=== PATIENT | female | born 1965 | race American Indian/Alaskan Native ===

== ENCOUNTER 2021-09-24 02:52 | Emergency (ER) | payer BC ==
--- NOTE | 2021-09-24 04:42 | XRay Report ---
XR chest routine 2V INDICATION / CLINICAL INFORMATION: COUGH. COMPARISON: None available. FINDINGS: SUPPORT DEVICES: None. HEART /PULMONARY VASCULATURE: No significant abnormality. LUNGS / PLEURA: No significant pulmonary or pleural abnormality. No pneumothorax. ADDITIONAL FINDINGS: Scoliotic curvature of the spine. IMPRESSION: 1. No acute findings. Signer Name: Leland Alvarado MD Signed: 09/24/2021 4:38 AM Workstation Name: [id number]
[2021-09-24] MEDS ORDERED: ALBUTEROL 2.5 MG/3 ML NEBU IH ONE (04:58)
[2021-09-24] MEDS ORDERED: IPRATROPIUM 0.02% NEBU 2.5 ML IH ONE (04:58)
[2021-09-24] MEDS ORDERED: methylPREDNISolone Sod Succinate 125 MG/2 ML INJ IM ONE (04:58)
--- NOTE | 2021-09-24 06:18 | Emergency Department Report ---
ED Shortness of Breath HPI - General Chief Complaint: Adult Asthma Stated Complaint: MIRI Source: patient Mode of arrival: Ambulatory Limitations: No Limitations - History of Present Illness Initial Comments: Patient is a 56-year-old -Iranian female with a history of chronic asthma and hypertension who presents to the ED with complaint of acute onset persistent shortness of breath, wheezing, chest tightness, persistent dry cough, nasal and sinus congestion for the last 1 week. Patient states that the symptoms have worsened especially in the last 4 days. Patient states that the symptoms are especially worse at night when she lays down and states that she has not slept in 2 days because of persistent cough and chest tightness with wheezing. Patient also states that she has been using her albuterol inhaler and nebulizers at home persistently with minimal relief. Patient denies fever, chills, nausea and vomiting, chest pain, abdominal pain, palpitation, change in vision, headache, sore throat, back pain, neck pain, dizziness or syncope. MD Complaint: shortness of breath, cough, "asthma attack" -: Gradual, week(s) (1) Severity: moderate Pain Scale: 5 Quality: other (Chest tightness) Consistency: constant Improves With: bronchodilators Worsens With: lying flat, coughing Known History Of: asthma Context: recent URI, allergen exposure Associated Symptoms: denies other symptoms, chest pain (Chest tightness), cough Treatments Prior to Arrival: bronchodilator - Related Data Home Oxygen Therapy: No Home Medications Medication Instructions Recorded Confirmed Last Taken amLODIPine 1 PO 06/29/13 06/29/13 Unknown hydroCHLOROthiazide 25 mg PO 06/29/13 06/29/13 Unknown [Hydrochlorothiazide] Previous Rx's Medication Instructions Recorded Last Taken Type Ferrous Sulfate [Iron Supplement 325 mg PO BID #60 tablet 06/29/13 Unknown Rx 325 Mg tab] medroxyPROGESTERone ACETATE 5 mg PO QDAY #7 tablet 06/29/13 Unknown Rx [Provera] Azithromycin [Zithromax Z-CLINTON] 250 mg PO DAILY #6 tab 09/24/21 Unknown Rx Benzonatate [Tessalon Perles] 100 mg PO Q8HR #30 cap 09/24/21 Unknown Rx Cetirizine HCl [Zyrtec 10mg tab] 10 mg PO DAILY #30 tab 09/24/21 Unknown Rx Montelukast [Singulair] 10 mg PO QPM #30 tablet 09/24/21 Unknown Rx Prednisone [predniSONE 10 mg 10 mg PO .TAPER #1 09/24/21 Unknown Rx (6-Day Pack, 21 Tabs)] Allergies Allergy/AdvReac Type Severity Reaction Status Date / Time Penicillins Allergy Unknown Verified 06/29/13 17:37 ED Review of Systems ROS: Stated complaint: MIRI Other details as noted in HPI Constitutional: denies: chills, fever Eyes: denies: eye pain, eye discharge, vision change ENT: congestion, other (Nasal and sinus congestion with pressure). denies: ear pain, throat pain Respiratory: cough, shortness of breath, wheezing Cardiovascular: denies: chest pain, palpitations Endocrine: no symptoms reported Gastrointestinal: denies: abdominal pain, nausea, vomiting, diarrhea Genitourinary: denies: urgency, dysuria, discharge Musculoskeletal: denies: back pain, joint swelling, arthralgia Skin: denies: rash, lesions Neurological: headache (frontal ). denies: weakness, paresthesias Psychiatric: denies: anxiety, depression Hematological/Lymphatic: denies: easy bleeding, easy bruising ED Past Medical Hx - Past Medical History Hx Hypertension: Yes Hx Asthma: Yes - Social History Smoking Status: Never Smoker Substance Use Type: None - Medications Home Medications: Home Medications Medication Instructions Recorded Confirmed Last Taken Type Ferrous Sulfate [Iron Supplement 325 mg PO BID #60 tablet 06/29/13 Unknown Rx 325 Mg tab] amLODIPine 1 PO 06/29/13 06/29/13 Unknown History hydroCHLOROthiazide 25 mg PO 06/29/13 06/29/13 Unknown History [Hydrochlorothiazide] medroxyPROGESTERone ACETATE 5 mg PO QDAY #7 tablet 06/29/13 Unknown Rx [Provera] Azithromycin [Zithromax Z-CLINTON] 250 mg PO DAILY #6 tab 09/24/21 Unknown Rx Benzonatate [Tessalon Perles] 100 mg PO Q8HR #30 cap 09/24/21 Unknown Rx Cetirizine HCl [Zyrtec 10mg tab] 10 mg PO DAILY #30 tab 09/24/21 Unknown Rx Montelukast [Singulair] 10 mg PO QPM #30 tablet 09/24/21 Unknown Rx Prednisone [predniSONE 10 mg 10 mg PO .TAPER #1 09/24/21 Unknown Rx (6-Day Pack, 21 Tabs)] ED Physical Exam - General Limitations: No Limitations General appearance: alert, in no apparent distress - Head Head exam: Present: atraumatic, normocephalic, normal inspection - Eye Eye exam: Present: normal appearance, PERRL, EOMI Pupils: Present: normal accommodation - ENT ENT exam: Present: normal orophraynx, mucous membranes moist, TM's normal bilaterally, normal external ear exam, other (Grossly congested nasal passages) - Neck Neck exam: Present: normal inspection, full ROM. Absent: tenderness - Respiratory Respiratory exam: Present: normal lung sounds bilaterally, wheezes (Mildly diffuse coarse wheezes throughout). Absent: respiratory distress, rales, stridor, chest wall tenderness, accessory muscle use, decreased breath sounds, prolonged expiratory - Cardiovascular Cardiovascular Exam: Present: normal rhythm, tachycardia, normal heart sounds. Absent: systolic murmur, diastolic murmur, rubs, gallop - GI/Abdominal GI/Abdominal exam: Present: soft, normal bowel sounds. Absent: tenderness, guarding, rebound, hyperactive bowel sounds, hypoactive bowel sounds, mass - Extremities Exam Extremities exam: Present: normal inspection, full ROM, normal capillary refill. Absent: tenderness, pedal edema, joint swelling, calf tenderness - Back Exam Back exam: Present: normal inspection, full ROM. Absent: tenderness, CVA tenderness (R), CVA tenderness (L), muscle spasm, paraspinal tenderness, vertebral tenderness - Neurological Exam Neurological exam: Present: alert, oriented X3, CN II-XII intact, normal gait, reflexes normal - Psychiatric Psychiatric exam: Present: normal affect, normal mood - Skin Skin exam: Present: warm, dry, intact, normal color. Absent: rash ED Course Vital Signs 09/24/21 02:55 Temperature 98.7 F Pulse Rate 100 H Respiratory 18 Rate Blood Pressure 174/94 O2 Sat by Pulse 91 Oximetry ED Medical Decision Making - Radiology Data Radiology results: report reviewed, image reviewed [facility] [address] [place] [address] XRay Report Signed Patient: LIZZIE WRIGHT MR#: [id number] : 1965 Acct:[id number] Age/Sex: 56 / F ADM Date: 09/24/21 Loc: ED Attending Dr: Ordering Physician: ED DOCMD Date of Service: 09/24/21 Procedure(s): XR chest routine 2V Accession Number(s): [id number] cc: ED DOCMD Fluoro Time In Minutes: XR chest routine 2V INDICATION / CLINICAL INFORMATION: COUGH. COMPARISON: None available. FINDINGS: SUPPORT DEVICES: None. HEART /PULMONARY VASCULATURE: No significant abnormality. LUNGS / PLEURA: No significant pulmonary or pleural abnormality. No pneumothorax. ADDITIONAL FINDINGS: Scoliotic curvature of the spine. IMPRESSION: 1. No acute findings. Signer Name: Sadia Alvarado MD Signed: 09/24/2021 4:38 AM Workstation Name: [id number] Transcribed By: JS Dictated By: SADIA ALVARADO MD Electronically Authenticated By: SADIA ALVARADO MD Signed Date/Time: 09/24/21437 DD/ 6 TD/TT: - Differential Diagnosis Sinusitis; URI; asthma; pneumonia; bronchitis; Critical care attestation.: If time is entered above; I have spent that time in minutes in the direct care of this critically ill patient, excluding procedure time. ED Disposition Clinical Impression: Acute upper respiratory infection, Acute asthmatic bronchitis, Shortness of breath Acute frontal sinusitis, unspecified Qualifiers: Recurrence: non-recurrent Qualified Code(s): J01.10 - Acute frontal sinusitis, unspecified Disposition: 01 HOME / SELF CARE / HOMELESS Is pt being admited?: No Does the pt Need Aspirin: No Condition: Stable Instructions: Acute Bronchitis (ED), Shortness of Breath, Adult, [id number], Sinusitis, Adult, [id number], Upper Respiratory Infection, Adult, [id number], Cough, Adult, [id number], Asthma, Adult, [id number] Additional Instructions: Chest x-ray showed no acute cardiopulmonary abnormalities or pneumonitis. Take medication with food, drink plenty of fluids, follow-up with your primary care physician in 7 to 10 days for reevaluation. Return to the ED immediately if symptoms get worse. Prescriptions: Prednisone [predniSONE 10 mg (6-Day Pack, 21 Tabs)] 10 mg PO .TAPER #1 Montelukast [Singulair] 10 mg PO QPM #30 tablet Benzonatate [Tessalon Perles] 100 mg PO Q8HR #30 cap Azithromycin [Zithromax Z-CLINTON] 250 mg PO DAILY #6 tab Cetirizine HCl [Zyrtec 10mg tab] 10 mg PO DAILY #30 tab Referrals: [facility] [Provider Group] - 7-10 days Time of Disposition: 06:21 Print Language: SERBIAN
[2021-09-24 06:44] VITALS: BP 162/91
== END 2021-09-24 07:00 | disposition home or self-care (01) ==
LOC: ED 02:52
DX: J06.9 Acute upper respiratory infection, unspecified (principal); J45.909 Unspecified asthma, uncomplicated; R06.02 Shortness of breath; J01.10 Acute frontal sinusitis, unspecified; I10 Essential (primary) hypertension; Z88.0 Allergy status to penicillin
CPT/HCPCS: 71046; 94640; 96372; 99283; J2930